=== PATIENT | female | born 1990 | race American Indian/Alaskan Native ===

== ENCOUNTER 2017-02-12 11:31 | Emergency (ER) | payer SELFPAY ==
[2017-02-12 11:46] VITALS: BP 112/69
--- NOTE | 2017-02-12 12:06 | Emergency Department Report ---
HPI - General Chief Complaint: Upper Respiratory Infection Time Seen by Provider: 02/12/17 12:02 - HPI HPI: Patient here reported she has chest pain for the last week. She says she's been having and nasal congestion and stuffy nose runny nose and cough this been going on for about a week and a half. She said she moved into a different apartment that has mold in it. And she's been coughing and having runny and stuffy nose since. Denies any fever or chills. Denies any nausea or vomiting. Last menstrual period was 01/29/2017. Denies any shortness of breath. Patient has no medical problems. Denies any sore throat or difficulty swallowing. Denies any previous history of chest pain or any family history of heart disease. ED Past Medical Hx - Past Medical History Previous Medical History?: No - Surgical History Past Surgical History?: Yes Hx Cholecystectomy: Yes - Family History Family history: no significant - Social History Smoking Status: Current Every Day Smoker Substance Use Type: None - Medications Home Medications: Home Medications Medication Instructions Recorded Confirmed Last Taken Type Amoxicillin/K Clav Tab [Augmentin 1 tab PO Q12HR #14 tab 02/12/17 Unknown Rx 875 mg] Cetirizine HCl [ZyrTEC] 10 mg PO QDAY #14 capsule 02/12/17 Unknown Rx Fluticasone [Flonase] 1 spray NS QDAY #1 bottle 02/12/17 Unknown Rx ED Review of Systems ROS: Stated complaint: CHEST PAIN Other details as noted in HPI Comment: All other systems reviewed and negative Constitutional: denies: chills, fever Eyes: denies: eye pain ENT: congestion. denies: throat pain Respiratory: cough. denies: orthopnea, shortness of breath, SOB with exertion, SOB at rest, stridor, wheezing Cardiovascular: chest pain. denies: palpitations, edema, syncope Gastrointestinal: denies: abdominal pain, nausea, vomiting, constipation Musculoskeletal: denies: back pain, arthralgia Skin: denies: rash Neurological: denies: headache, weakness, abnormal gait, vertigo Physical Exam - Physical Exam Vital Signs: Vital Signs 02/12/17 11:44 Temperature 98.6 F Pulse Rate 80 Respiratory 16 Rate Blood Pressure 112/69 O2 Sat by Pulse 100 Oximetry General: This is a 26-year-old female well-nourished well-developed in no acute distress. Physical Exam: Head: Normocephalic atraumatic Mouth: Moist, no pharyngeal exudate or erythema. Uvula is midline and oral airway is patent. No gingival enlargement or dental tenderness. No facial swelling. No peritonsillar abscesses. Neck: Supple, no C-spine tenderness, no tracheal deviation. Nontender to palpate. no adenopathy Ears: Bilateral TMs congested without erythema .bilateral EAC without any redness swelling or drainage Eyes: Bilateral pupils equal and reactive to light, bilateral EOM intact. Bilateral sclera and conjunctiva without injection. Normal accommodation Nose: Mucosa moist, positive congestion with erythema. Positive clear drainage. maxillary tender to palpate. Lungs: Clear to auscultate bilaterally no rhonchi wheezes or rales. Normal work of breathing extremity; No CCE. +2 pulses. No neurovascular compromise Cardiovascular: S1-S2, regular rate rhythm. No murmurs. Skin: clean Dry and intact no rash no lesions Psych: Normal mood and behavior ED Course Vital Signs 02/12/17 11:44 Temperature 98.6 F Pulse Rate 80 Respiratory 16 Rate Blood Pressure 112/69 O2 Sat by Pulse 100 Oximetry - Reevaluation(s) Reevaluation #1: 02/12/17 12:23 Patient stable throughout ED course. ED Medical Decision Making - EKG Data -: EKG Interpreted by Me (attending physician in emergency room) EKG shows normal: sinus rhythm Rate: normal (at 81 bpm) - EKG Data When compared to previous EKG there are: no significant change Interpretation: no acute changes, normal EKG - Medical Decision Making ED course: Pt here reporting upper respiratory symptoms and chest tightness after being exposed to mold in her apartment. I discussed with patient that her EKG was normal but if she continued to have chest pain only to follow-up with a mail forwarding system markup clerk. Based on my physical findings, I discussed the patient that she has upper respiratory tract infection and sinusitis with cough. 0 criteria No need for further workup, as <2% chance of PE. I told her that she needs to clean the mole from her apartment or reports to [facility]. She was given information and phone number to report. I discussed diagnosis and treatment plan with patient and she voices understanding. Pt discharged home in stable condition with prescription for Augmentin, Zyrtec and Flonase. Critical care attestation.: If time is entered above; I have spent that time in minutes in the direct care of this critically ill patient, excluding procedure time. ED Disposition Clinical Impression: Cough, Atypical chest pain Sinusitis nasal Qualifiers: Sinusitis location: maxillary Chronicity: unspecified Qualified Code(s): J32.0 - Chronic maxillary sinusitis Disposition: TO HOME OR SELFCARE Is pt being admited?: No Does the pt Need Aspirin: No Condition: Stable Instructions: Chest Pain (ED), Sinusitis (ED), Acute Cough (ED) Additional Instructions: Please see information given on multiple reported Take medication as prescribed Increase her fluid intake Flush nostrils out with nasal saline Prescriptions: Amoxicillin/K Clav Tab [Augmentin 875 mg] 1 tab PO Q12HR #14 tab Cetirizine HCl [ZyrTEC] 10 mg PO QDAY #14 capsule Fluticasone [Flonase] 1 spray NS QDAY #1 bottle Referrals: [facility] [Outside] - 3-5 Days Forms: Work/School Release Form(ED)
== END 2017-02-12 12:51 | disposition home or self-care (01) ==
LOC: ED 11:31
DX: R07.89 Other chest pain (principal); J32.9 Chronic sinusitis, unspecified; F17.200 Nicotine dependence, unspecified, uncomplicated; Z90.49 Acquired absence of other specified parts of digestive tract
CPT/HCPCS: 93005; 93010; 99282